=== PATIENT | male | born 1960 | race Caucasian/White ===

== ENCOUNTER 2018-05-08 06:34 | Day surgery (SDC) | payer BC ==
[~2018-05-08] VITALS: Ht 172.7 cm; Wt 64.4 kg
[~2018-05-08 06:34] MED LIST: AVODART0.5 MG PO; COREG6.25 MG PO; LISINOPRIL5 MG PO; TESTOSTERONE IM
[2018-05-08 07:14] LABS: HEMATOCRIT 48.7 % (42.0-54.0); HEMOGLOBIN 16.6 g/dL (13.5-17.5); MCH 31.6 pg (26.0-34.0); MCHC 34.1 g/dL (31.0-37.0); MCV 92.6 fL (80.0-100.0); RBC 5.26 10x6/uL (4.20-6.10); RDW 13.7 % (11.5-14.5); WBC 5.1 10x3/uL (4.8-10.8)
[2018-05-08] MEDS ORDERED: ANASTROZOLE 1 MG (07:26)
[2018-05-08 07:42] VITALS: BP 120/70; Ht 172.7 cm; Wt 64.4 kg
[2018-05-08] MEDS ORDERED: DILAUDID4 MG PO (12:48)
--- NOTE | 2018-05-08 15:44 | NUR ---
1453 IV DC'D. CATHETER INTACT. PRESSURE APPLIED UNTIL BLEEDING STOPPED. BANDAID APPLIED. 1500 PT DEMONSTRATED HOW TO OPERATE BRACE SO THAT HE CAN DO ELBOW FLEXION EXTENSION EXERCISES. PT REQUIRED ASSISTANCE TO GET DRESSED. PT VOICES UNDERSTANDING OF DISCHARGE INSTRUCTIONS.
--- NOTE | 2018-05-12 09:18 | OP ---
PATIENT NAME: MONA COLLINS MEDICAL RECORD: [id number] :62 [facility] DATE: SURGEON: REID GAY MD DATE OF OPERATION: 05/08/2018 PREOPERATIVE DIAGNOSIS: Rotator cuff tear arthropathy of the right shoulder. POSTOPERATIVE DIAGNOSIS: Rotator cuff tear arthropathy of the right shoulder. PROCEDURE: Open superior capsular reconstruction of the right shoulder (open rotator cuff repair with allograft tissue augmentation). SURGEON: Reid Gay MD SCULPTURE INSTRUCTOR: Maico Carolina ANESTHESIA: General. INTRAOPERATIVE COMPLICATIONS: None. SUMMARY OF PATHOLOGIC FINDINGS: Consistent with the preoperative diagnosis, Mr. Collins did have a large rotator cuff repair. He has had multiple surgeries on this and unfortunately he was beginning to show a pattern of subacromial erosion. At his age of 58, given his excellent bone quality, I felt like a superior capsular reconstruction with an npik-[id number]-vvm rotator cuff fixation was reasonable. This is what was done. OPERATIVE SUMMARY IN DETAIL: After obtaining the appropriate preoperative orthopedic surgery consent as well as anesthetic consultation, evaluation, and clearance, the patient was brought to the operating room and placed on the operating table in supine position. After general laryngeal mask airway was administered, the patient was placed in a beach chair position. All pressure points were well padded. He was held firmly to the operating table using the vacuum pack suction system. Right upper extremity and shoulder were then prepped and draped in routine sterile fashion. The arm was held in Trimano arm holding device. Previously utilized anterolateral incision was taken across and down the level of the acromion. Subdeltoid-periosteal resection was done. This was taken across the AC joint. AC joint had prior resection; however, it had residual recurrence of osteophytes. Further AC joint was resected also aiding in approach to the superior glenoid. At this point, further acromioplasty was performed as the patient still exhibited signs of the lateral impingement as well as some anterior impingement and then with the arm in a modest amount of traction, the rotator cuff was serial and sequentially mobilized. Even though the rotator cuff was mobilized, it was thin and friable and I did not feel like rotator cuff repair alone was reasonable. At this point, the superior aspect of the glenoid was identified and made preparation for the FCR technique. Two suture anchors were placed at the 10:30 and 1:30 position of the glenoid. They were seated nicely into this patient's firm bone. The cut and measured portion of the dermal allograft was parachuted in and tied for the medial fixation. Lateral fixation was then achieved using a double row SpeedBridge from [employer]. Next, the rotator cuff that available was reapproximated across the top of the FCR giving this a very good superior capsular reconstruction. Nsar-lg-qxws reapproximation of the residual [place] rotator cuff was also achieved. This was then followed by reapproximation of the deltoid into the acromion using an imbricated obkdu-[id number]-hgiz suture with #2 FiberWire. Further closure was then OPERATIVE REPORT [id number] MONA COLLINS achieved. Further closure was achieved by Maico Carolina that is deep deltoid, superficial deltoid as well as skin closure. Final skin closure achieved with ajit. Sterile dressings were applied. The patient was awakened and taken to the recovery room in stable condition. All final needle and sponge counts were correct. TRANSINT:[id number] Voice Confirmation ID: [id number] DOCUMENT ID: [id number] VICTOR HUGO GARCES, REID MCCARTY at 0918 CC: [id number] DICTATION DATE: 05/09/18 0957 PROCESS ARCHITECT: 05/09/18 1136 [facility] 05/08/18 [facility] [address] [place] [address]
== END 2018-05-08 15:27 | disposition home or self-care (01) ==
LOC: D.OPS 06:34 → D.PAN 11:30 → D.OPS 13:30
PROVIDERS: Anesthesiology
DX: M75.101 Unspecified rotator cuff tear or rupture of right shoulder, not specified as traumatic (principal)

== ENCOUNTER 2019-01-08 09:05 | Day surgery (SDC) | payer BC ==
[2019-01-07 14:31] LABS: BASOPHILS 0.4 % (0-2); EOSINOPHILS 0.9 % (0-7); HEMATOCRIT 51.6 % (42.0-54.0); HEMOGLOBIN 17.4 g/dL (13.5-17.5); IMMATURE GRANULOCYTES 0.4 % (0-5); LYMPHOCYTES 19.4 % (15-50); MCH 32.5 pg (26.0-34.0); MCHC 33.7 g/dL (31.0-37.0); MCV 96.3 fL (80.0-100.0); NEUTROPHILS 68.9 % (40-80); PLATELET COUNT 188 10x3/uL (130-400); RBC 5.36 10x6/uL (4.20-6.10); RDW 13.9 % (11.5-14.5); WBC 7.8 10x3/uL (4.8-10.8)
[2019-01-07 14:43] LABS: PROTIME 12.7 SECONDS (11.6-15.0)
[2019-01-07 14:44] LABS: APTT 32.1 SECONDS (22.8-39.4)
[~2019-01-08] VITALS: Ht 172.7 cm; Wt 63.5 kg
[2019-01-08 07:50] VITALS: Ht 172.7 cm; Wt 63.5 kg
[~2019-01-08 09:05] MED LIST changes: +ANASTROZOLE 1 MG PO; +DILAUDID4 MG PO
[2019-01-08] MEDS ORDERED: HYDROCODON-ACE1 EA10 PO (12:24)
--- NOTE | 2019-01-08 16:48 | NUR ---
1500 PT IS WAITING ON RIDE. STABLE, DRESSED, AND PAIN FREE.
--- NOTE | 2019-01-09 14:29 | OP ---
PATIENT NAME: MONA COLLINS III MEDICAL RECORD: [id number] :62 LOCATION:[facility] ADMISSION DATE: SURGEON: REID GAY MD DATE OF OPERATION: 01/08/2019 PREOPERATIVE DIAGNOSIS: Ulnar collateral ligament tear of the left upper extremity (Kendall Sebastien injury). POSTOPERATIVE DIAGNOSIS: Ulnar collateral ligament tear of the left upper extremity (Kendall Sebastien injury). PROCEDURE: Left ulnar collateral ligament reconstruction with Ar[employer] internal bracing. SURGEON: Reid Gay MD BEATER BOSS: Sandie Carrion. INTRAOPERATIVE COMPLICATIONS: None. SUMMARY OF PATHOLOGIC FINDINGS: The patient had a tear of the ulnar collateral ligament off the sublime tubercle of the ulna. The tendon itself was in very good viable condition and I did not feel like with the internal brace, it required additional tissue grafting. OPERATIVE SUMMARY IN DETAIL: After obtaining the appropriate preoperative orthopedic surgery consent as well as anesthetic consultation, evaluation and clearance, the patient was brought to the operating room and placed on the operating table in supine position. After adequate general laryngeal mask airway was administered, tourniquet was placed in the proximal aspect of left upper extremity. Left upper extremity was then prepped and draped in routine sterile fashion. The arm was elevated and exsanguinated, tourniquet was inflated to 350 mmHg. Incision was taken down just posterior to the medial epicondyle. The very first portion of this case was to identify and mobilize in its entirety the ulnar nerve. The ulnar nerve was identified and the flexor mass was gently incised through the fascia to identify portions of the ulnar nerve and motor branches into the flexor mass. Please note that the medial antebrachial cutaneous nerve was also identified and protected throughout the entire case and was not violated. After mobilization of these 2 nerves, the flexor mass was gently incised in a superficial fascial plane as to not disrupt any portions of the ulnar collateral ligament at the sublime tubercle. Further dissection was carried out proximally to identify the proximal aspect of the ulnar collateral ligament residual. At this point in keeping with the [employer] technique, the residual UCL was split from its insertion site to its origin site where it was torn slightly. The patient's ulnar capitellar articulation was identified. After identifying both the sublime tubercle as well as the medial epicondylar insertion of the ulnar collateral ligament, the 3.5 PEEK SwiveLocks preloaded with Biofiber Tape was then placed into the sublime tubercle. This was then gently reapproximated to the medial collateral ligament with a second 3.5 PEEK tape using the hemostat under FiberTape technique to avoid over tightening. When the appropriate tension was placed, it was then firmly implanted using the 3.5 SwiveLock from [employer]. The elbow was gently ranged and it was found to have excellent range of motion without excessive over tightening. The test roll and collateral ligament stability showed the patient had very nice stability at this point. At this point, the split in the [place] OPERATIVE REPORT [id number] MONA COLLINS III ulnar collateral ligament was reapproximated using a 2-0 FiberWire. This was reapproximated surrounding the biologic tape back to the origin. The portions of the origin were reapproximated back in a periosteal fashion for holding. Again, test showed good stability. At this point, the fascial layer was gently reapproximated over the ulnar nerve to just proximal to the sublime tubercle. Wound was copiously irrigated. It is of note that at this point, approximately 10 cc of platelet rich plasma was placed on the repaired ulnar collateral ligament as well as the Biofiber tape. The wound was then closed with 2-0 Vicryl followed by 4-0 Prolene. This was done by LYSSA Donald. Having completed this, tourniquet was deflated. Sterile dressings were applied. The patient was then placed in a posterior splint to allow his wrist free for early range of motion of his wrist and hand. The patient was awakened, taken to recovery room in stable condition. All final needle and sponge counts were correct. TRANSINT:[id number] Voice Confirmation ID: [id number] DOCUMENT ID: [id number] REID GAY MD at 1429 CC: [id number] DICTATION DATE: 01/09/19 1148 [employer] ENGINEER: 01/09/19 1202 [facility] 01/08/19 [facility] [address] [place] [address]
== END 2019-01-08 16:10 | disposition home or self-care (01) ==
LOC: D.OPS 09:05 → D.PAN 10:15 → D.OPS 13:40 → D.PAN 13:40 → D.OPS 14:00 → D.PAN 14:00 → D.OPS 16:10
PROVIDERS: Anesthesiology; ATTEND Orthopaedic Surgery
DX: S53.442A Ulnar collateral ligament sprain of left elbow, initial encounter (principal); X58.XXXA Exposure to other specified factors, initial encounter

== ENCOUNTER → 2019-11-18 10:45 | Outpatient (CLI) | payer MEDICAID ==
[2019-04-27 09:24] VITALS: BMI 21.3
[~2019-11-18 10:45] MED LIST changes: +HYDROCODON-ACE1 EA10 PO
== END | disposition home or self-care (01) ==
LOC: D.MRI 10:45
PROVIDERS: ATTEND Clinical Nurse Specialist Family Health
DX: M54.5 Low back pain (principal)